=== PATIENT | male | born 1955 | race Caucasian/White ===

== ENCOUNTER 2018-05-04 12:01 | Inpatient (IN) | payer MEDICAID, OTHER ==
[~2018-05-04] VITALS: Ht 170.2 cm; Wt 70.2 kg
[~2018-05-04 12:01] MED LIST: AMLO10TA2 PO; DARU800T2 PO; DULO30CA2 PO; GABA800T2 PO; INSU100V8 SQ; LAMO25TA13 PO; LISI-167 PO; MIRT30TA6 PO; PANT40TA5 PO; RITO100C PO; [UNRECOGNIZED DRUG - CODE] PO; [UNRECOGNIZED DRUG - CODE] PO
[2018-05-04] MEDS ORDERED: SODIUM CHLORIDE 0.9% 1,000 ML IV ONE (12:15)
[2018-05-04] MEDS: SODIUM CHLORIDE 0.9% 1,000ML IVBOLUS ONE ×2 (12:29→12:30)
[2018-05-04] MEDS ORDERED: SODIUM CHLORIDE FLUSH 10ML SYR IVF ONE (12:30)
[2018-05-04 12:42] LABS: BASOPHILS # (AUTO) 0.04 x10^3/uL (0-0.1); BASOPHILS % (AUTO) 1 % (0-1); EOSINOPHILS # (AUTO) 0.21 x10^3/uL (0-0.4); EOSINOPHILS % (AUTO) 3 % (1-7); LYMPHOCYTES % (AUTO) 37 % (22-44); MD NO; MEAN CORPUSCULAR HEMOGLOBIN 29.7 pg (27.5-34.5); MEAN CORPUSCULAR HGB CONC 33.3 g/dL (33.2-36.2); MEAN CORPUSCULAR VOLUME 89.4 fL (81-97); MEAN PLATELET VOLUME 8.6 fL (7.4-10.4); MONOCYTES # (AUTO) 0.82 x10^3/uL (0.2-0.8); MONOCYTES % (AUTO) 12 % (2-9); NEUTROPHILS # (AUTO) 3.38 x10^3/uL (1.8-6.8); NEUTROPHILS % (AUTO) 48 % (42-75); PLATELET COUNT 173 x10^3/uL (130-400); RED BLOOD COUNT 4.75 x10^6/uL (4.38-5.82); RED CELL DISTRIBUTION WIDTH 13.6 % (9.4-14.8)
[2018-05-04 12:55] LABS: ALANINE AMINOTRANSFERASE 31 U/L (12-78); ALBUMIN 3.3 g/dL (3.4-5.0); ANION GAP 7 mmol/L (5-15); CALCIUM 8.3 mg/dL (8.5-10.1); CHLORIDE 106 mmol/L (98-107)
[2018-05-04 12:59] LABS: BILIRUBIN,TOTAL 0.8 mg/dL (0.2-1.0); CREATININE 2.19 mg/dL (0.7-1.3); TOTAL PROTEIN 7.1 g/dL (6.4-8.2); TROPONIN I 0.017 ng/mL (0.000-0.045)
[2018-05-04] MEDS ORDERED: CEFTRIAXONE PMX 1GM/50ML 50 ML IVPB ONE (13:00)
[2018-05-04] MEDS ORDERED: AZITHROMYCIN 500 MG in SODIUM CHLORIDE 0.9% 250 ML IVPB ONE (13:00)
[2018-05-04 13:05] LABS: D-DIMER < 0.19 ug/mlFEU (0.00-0.52); INTERNATIONAL NORMALIZED RATIO 1.07 (0.93-1.1); PARTIAL THROMBOPLASTIN TIME 28 Seconds (25-31); PROTHROMBIN TIME 11.1 Seconds (9.6-11.5)
[2018-05-04] MEDS ORDERED: DEXTROSE 50%, 50ML SYRINGE ONE (13:10)
[2018-05-04 13:13] LABS: ALKALINE PHOSPHATASE 63 U/L (45-117)
[2018-05-04] MEDS ORDERED: CEFTRIAXONE PMX 1GM/50ML 50 ML ONE (13:27)
[2018-05-04] MEDS ORDERED: DEXTROSE 50%, 50ML SYRINGE IVPush ONE (13:30)
[2018-05-04] MEDS ORDERED: INSU100V13 SQ (13:36)
[2018-05-04] MEDS ORDERED: ASPI-515 PO (13:36)
[2018-05-04] MEDS ORDERED: HYDROcodone/APAP 5/325 TABLET PO PRN (14:30)
[2018-05-04] MEDS ORDERED: ONDANSETRON ODT 4 MG PO PRN (14:30)
[2018-05-04] MEDS ORDERED: POLYETHYLENE GLYCOL 17 GM PACKET PO PRN (14:30)
[2018-05-04] MEDS ORDERED: ONDANSETRON 2MG/ML, 2ML IVPush PRN (14:30)
[2018-05-04] MEDS ORDERED: LABETALOL 5MG/ML, 20ML IVPush PRN (14:30)
[2018-05-04 14:57] LABS: FREE T4 (FREE THYROXINE) 1.23 ng/dL (0.76-1.46)
[2018-05-04] MEDS ORDERED: ALBUTEROL SULFATE 2.5 MG/3 ML NPPB PRN (15:00)
[2018-05-04] MEDS ORDERED: POTASSIUM CHLORIDE 20 MEQ TAB.ER.PRT PO ONE ×3 (15:00→20:00)
[2018-05-04] MEDS ORDERED: PHARMACY MAY ADJ FOR RENAL FX MC PRN (15:00)
[2018-05-04] MEDS ORDERED: POTASSIUM CHLORIDE 20 MEQ TAB.ER.PRT ONE (15:01)
[2018-05-04 15:24] LABS: HEMOGLOBIN A1C 8.1 % (4.2-6.3)
[2018-05-04] MEDS: CEFTRIAXONE PMX 1GM/50ML 50 ML IV SCH (15:47)
[2018-05-04 15:57] VITALS: BP 125/79
[2018-05-04 16:53] LABS: AMPHETAMINE SCREEN, URINE Positive (Negative); BARBITURATE SCREEN, URINE Negative (Negative); BENZODIAZEPINE SCREEN, URINE Negative (Negative); CANNABINOID SCREEN, URINE Negative (Negative); COCAINE SCREEN, URINE Negative (Negative); METHADONE SCREEN, URINE Negative (Negative); OPIATE SCREEN, URINE Negative (Negative); SODIUM,URINE RANDOM 36 mmol/L
[2018-05-04] MEDS: GABAPENTIN 400 MG CAPSULE PO SCH (17:18)
[2018-05-04] MEDS: HEPARIN 5,000 UNITS/ML, 1ML SQ SCH (17:18)
[2018-05-04] MEDS: DOXYCYCLINE 100MG TABLET PO SCH (17:20)
[2018-05-04 18:42] VITALS: BP 137/83
[2018-05-04 18:53] VITALS: BP 131/80
[2018-05-04] MEDS: INSULIN LISPRO 100 UNITS/ML, PEN SQ-INSULIN SCH (21:07)
[2018-05-05 00:51] VITALS: BP 114/79
[2018-05-05] MEDS: HEPARIN 5,000 UNITS/ML, 1ML SQ SCH ×4 (01:43→23:58)
[2018-05-05] MEDS: GABAPENTIN 400 MG CAPSULE PO SCH ×4 (01:44→21:24)
[2018-05-05] MEDS: DOXYCYCLINE 100MG TABLET PO SCH ×3 (05:19→21:24)
[2018-05-05 05:44] LABS: ALBUMIN 3.3 g/dL (3.4-5.0); ANION GAP 6 mmol/L (5-15); CALCIUM 8.5 mg/dL (8.5-10.1); CHLORIDE 107 mmol/L (98-107)
[2018-05-05 05:51] LABS: BASOPHILS # (AUTO) 0.02 x10^3/uL (0-0.1); BASOPHILS % (AUTO) 0 % (0-1); EOSINOPHILS # (AUTO) 0.24 x10^3/uL (0-0.4); EOSINOPHILS % (AUTO) 5 % (1-7); LYMPHOCYTES # (AUTO) 1.68 x10^3/uL (1-3.4); LYMPHOCYTES % (AUTO) 33 % (22-44); MD NO; MEAN CORPUSCULAR HEMOGLOBIN 30.1 pg (27.5-34.5); MEAN CORPUSCULAR HGB CONC 32.7 g/dL (33.2-36.2); MEAN CORPUSCULAR VOLUME 92.1 fL (81-97); MEAN PLATELET VOLUME 9.4 fL (7.4-10.4); MONOCYTES # (AUTO) 0.38 x10^3/uL (0.2-0.8); MONOCYTES % (AUTO) 7 % (2-9); NEUTROPHILS # (AUTO) 2.74 x10^3/uL (1.8-6.8); NEUTROPHILS % (AUTO) 54 % (42-75); PLATELET COUNT 131 x10^3/uL (130-400); RED BLOOD COUNT 4.61 x10^6/uL (4.38-5.82); RED CELL DISTRIBUTION WIDTH 13.1 % (9.4-14.8)
[2018-05-05 05:57] LABS: ALANINE AMINOTRANSFERASE 33 U/L (12-78); ALKALINE PHOSPHATASE 63 U/L (45-117); BILIRUBIN,TOTAL 0.8 mg/dL (0.2-1.0); CREATININE 1.83 mg/dL (0.7-1.3); THYROID STIMULATING HORMONE 0.682 mIU/L (0.358-3.740); TOTAL PROTEIN 7.1 g/dL (6.4-8.2)
[2018-05-05] MEDS: INSULIN LISPRO 100 UNITS/ML, PEN SQ-INSULIN SCH ×4 (08:27→21:25)
[2018-05-05] MEDS: LAMOTRIGINE 25 MG TABLET PO SCH (08:35)
[2018-05-05] MEDS: ASPIRIN 81 MG TABLET EC PO SCH (08:36)
[2018-05-05] MEDS: ABACAVIR 300 MG TABLET PO SCH (08:36)
[2018-05-05] MEDS: RITONAVIR 100 MG TABLET PO SCH (08:36)
[2018-05-05] MEDS: PANTOPROZOLE 40MG TABLET PO SCH (08:36)
[2018-05-05] MEDS: DARUNAVIR 800 MG TABLET PO SCH (08:36)
[2018-05-05] MEDS: SENNA/DOCUSATE TABLET PO SCH (08:37)
[2018-05-05] MEDS: INSULIN GLARGINE 100 UNITS/ML, PEN SQ-INSULIN SCH ×2 (08:37→21:24)
[2018-05-05] MEDS ORDERED: TEMPLATE NON-FORMULARY MED. (Amlodipine Besylate (Amlodipine Besylate**) 5 MG) PO SCH (09:00)
[2018-05-05 09:34] VITALS: BP 124/78
[2018-05-05 13:30] VITALS: BP 105/69
[2018-05-05] MEDS: CEFTRIAXONE PMX 1GM/50ML 50 ML IV SCH (13:37)
[2018-05-05 19:57] VITALS: BP 115/73
[2018-05-06 03:40] VITALS: BP 117/75
[2018-05-06 05:32] LABS: BASOPHILS # (AUTO) 0.02 x10^3/uL (0-0.1); BASOPHILS % (AUTO) 0 % (0-1); EOSINOPHILS % (AUTO) 7 % (1-7); LYMPHOCYTES # (AUTO) 2.01 x10^3/uL (1-3.4); LYMPHOCYTES % (AUTO) 45 % (22-44); MD NO; MEAN CORPUSCULAR HEMOGLOBIN 30.2 pg (27.5-34.5); MEAN CORPUSCULAR HGB CONC 33.2 g/dL (33.2-36.2); MEAN CORPUSCULAR VOLUME 90.9 fL (81-97); MEAN PLATELET VOLUME 8.8 fL (7.4-10.4); MONOCYTES # (AUTO) 0.32 x10^3/uL (0.2-0.8); MONOCYTES % (AUTO) 7 % (2-9); NEUTROPHILS # (AUTO) 1.84 x10^3/uL (1.8-6.8); NEUTROPHILS % (AUTO) 41 % (42-75); PLATELET COUNT 139 x10^3/uL (130-400); RED BLOOD COUNT 4.33 x10^6/uL (4.38-5.82); RED CELL DISTRIBUTION WIDTH 12.8 % (9.4-14.8)
[2018-05-06 05:44] LABS: CHLORIDE 107 mmol/L (98-107)
[2018-05-06 05:55] LABS: ALANINE AMINOTRANSFERASE 31 U/L (12-78); ALKALINE PHOSPHATASE 60 U/L (45-117); ANION GAP 6 mmol/L (5-15); BILIRUBIN,TOTAL 0.5 mg/dL (0.2-1.0); CALCIUM 8.7 mg/dL (8.5-10.1); CREATININE 1.32 mg/dL (0.7-1.3); TOTAL PROTEIN 6.5 g/dL (6.4-8.2)
[2018-05-06 06:40] VITALS: BP 148/90
[2018-05-06] MEDS: INSULIN GLARGINE 100 UNITS/ML, PEN SQ-INSULIN SCH ×2 (10:07→22:47)
[2018-05-06] MEDS: INSULIN LISPRO 100 UNITS/ML, PEN SQ-INSULIN SCH ×4 (10:08→22:46)
[2018-05-06] MEDS: HEPARIN 5,000 UNITS/ML, 1ML SQ SCH ×2 (10:10→17:10)
[2018-05-06] MEDS: ASPIRIN 81 MG TABLET EC PO SCH (10:13)
[2018-05-06] MEDS: GABAPENTIN 400 MG CAPSULE PO SCH ×3 (10:14→22:45)
[2018-05-06] MEDS: DOXYCYCLINE 100MG TABLET PO SCH ×2 (10:14→22:47)
[2018-05-06] MEDS: LAMOTRIGINE 25 MG TABLET PO SCH (10:14)
[2018-05-06] MEDS: DARUNAVIR 800 MG TABLET PO SCH (10:15)
[2018-05-06] MEDS: PANTOPROZOLE 40MG TABLET PO SCH (10:15)
[2018-05-06] MEDS: SENNA/DOCUSATE TABLET PO SCH (10:15)
[2018-05-06] MEDS: RITONAVIR 100 MG TABLET PO SCH (10:15)
[2018-05-06] MEDS: ABACAVIR 300 MG TABLET PO SCH (10:15)
[2018-05-06 12:40] VITALS: BP 98/59
[2018-05-06] MEDS ORDERED: LACTATED RINGERS 1,000 ML IV SCH (13:00)
[2018-05-06] MEDS: CEFTRIAXONE PMX 1GM/50ML 50 ML IV SCH (13:09)
[2018-05-06 21:55] VITALS: BP 122/79
[2018-05-07] MEDS: HEPARIN 5,000 UNITS/ML, 1ML SQ SCH ×3 (01:27→17:57)
[2018-05-07 03:41] VITALS: BP 128/62
[2018-05-07 05:33] LABS: BASOPHILS # (AUTO) 0.02 x10^3/uL (0-0.1); BASOPHILS % (AUTO) 1 % (0-1); EOSINOPHILS # (AUTO) 0.23 x10^3/uL (0-0.4); EOSINOPHILS % (AUTO) 7 % (1-7); LYMPHOCYTES % (AUTO) 45 % (22-44); MD NO; MEAN CORPUSCULAR HEMOGLOBIN 30.5 pg (27.5-34.5); MEAN CORPUSCULAR VOLUME 89.6 fL (81-97); MEAN PLATELET VOLUME 8.8 fL (7.4-10.4); MONOCYTES # (AUTO) 0.27 x10^3/uL (0.2-0.8); MONOCYTES % (AUTO) 8 % (2-9); NEUTROPHILS # (AUTO) 1.42 x10^3/uL (1.8-6.8); NEUTROPHILS % (AUTO) 40 % (42-75); PLATELET COUNT 128 x10^3/uL (130-400); RED BLOOD COUNT 4.23 x10^6/uL (4.38-5.82); RED CELL DISTRIBUTION WIDTH 12.8 % (9.4-14.8)
[2018-05-07 05:39] LABS: ANION GAP 7 mmol/L (5-15); CALCIUM 8.8 mg/dL (8.5-10.1); CHLORIDE 108 mmol/L (98-107)
[2018-05-07 05:40] LABS: CREATININE 1.27 mg/dL (0.7-1.3)
[2018-05-07] MEDS: INSULIN LISPRO 100 UNITS/ML, PEN SQ-INSULIN SCH ×4 (07:00→21:32)
[2018-05-07 08:01] VITALS: BP 130/68
[2018-05-07] MEDS: ASPIRIN 81 MG TABLET EC PO SCH (08:20)
[2018-05-07] MEDS: PANTOPROZOLE 40MG TABLET PO SCH (08:20)
[2018-05-07] MEDS: DOXYCYCLINE 100MG TABLET PO SCH ×2 (08:20→21:32)
[2018-05-07] MEDS: SENNA/DOCUSATE TABLET PO SCH (08:21)
[2018-05-07] MEDS: GABAPENTIN 400 MG CAPSULE PO SCH ×3 (08:21→21:32)
[2018-05-07] MEDS: RITONAVIR 100 MG TABLET PO SCH (08:21)
[2018-05-07] MEDS: LAMOTRIGINE 25 MG TABLET PO SCH (08:21)
[2018-05-07] MEDS: DARUNAVIR 800 MG TABLET PO SCH (08:22)
[2018-05-07] MEDS: ABACAVIR 300 MG TABLET PO SCH (08:22)
[2018-05-07 13:00] VITALS: BP 111/73
[2018-05-07] MEDS: CEFTRIAXONE PMX 1GM/50ML 50 ML IV SCH (13:48)
[2018-05-07 18:46] VITALS: BP 145/87
[2018-05-07] MEDS: INSULIN GLARGINE 100 UNITS/ML, PEN SQ-INSULIN SCH (21:32)
[2018-05-08] MEDS: HEPARIN 5,000 UNITS/ML, 1ML SQ SCH ×2 (00:36→08:30)
[2018-05-08 01:18] VITALS: BP 118/76
[2018-05-08 05:43] LABS: BASOPHILS # (AUTO) 0.02 x10^3/uL (0-0.1); BASOPHILS % (AUTO) 1 % (0-1); EOSINOPHILS # (AUTO) 0.18 x10^3/uL (0-0.4); EOSINOPHILS % (AUTO) 5 % (1-7); LYMPHOCYTES # (AUTO) 1.75 x10^3/uL (1-3.4); LYMPHOCYTES % (AUTO) 47 % (22-44); MD NO; MEAN CORPUSCULAR HEMOGLOBIN 29.8 pg (27.5-34.5); MEAN CORPUSCULAR HGB CONC 32.9 g/dL (33.2-36.2); MEAN CORPUSCULAR VOLUME 90.7 fL (81-97); MEAN PLATELET VOLUME 8.9 fL (7.4-10.4); MONOCYTES # (AUTO) 0.39 x10^3/uL (0.2-0.8); MONOCYTES % (AUTO) 11 % (2-9); NEUTROPHILS # (AUTO) 1.42 x10^3/uL (1.8-6.8); NEUTROPHILS % (AUTO) 38 % (42-75); PLATELET COUNT 136 x10^3/uL (130-400); RED BLOOD COUNT 4.51 x10^6/uL (4.38-5.82); RED CELL DISTRIBUTION WIDTH 12.8 % (9.4-14.8)
[2018-05-08 05:52] LABS: CHLORIDE 109 mmol/L (98-107)
[2018-05-08 05:57] LABS: ANION GAP 5 mmol/L (5-15); CALCIUM 8.9 mg/dL (8.5-10.1); CREATININE 1.34 mg/dL (0.7-1.3)
[2018-05-08] MEDS: INSULIN LISPRO 100 UNITS/ML, PEN SQ-INSULIN SCH ×2 (07:00→11:23)
[2018-05-08 07:24] VITALS: BP 115/62
[2018-05-08] MEDS ORDERED: CEFD300C37 PO (07:34)
[2018-05-08] MEDS ORDERED: DOXY100T PO (07:34)
[2018-05-08] MEDS ORDERED: INSU100V13 SQ (07:34)
[2018-05-08] MEDS ORDERED: CEFTRIAXONE PMX 1GM/50ML 50 ML IV SCH (08:00)
[2018-05-08] MEDS: SENNA/DOCUSATE TABLET PO SCH (09:00)
[2018-05-08] MEDS: RITONAVIR 100 MG TABLET PO SCH (09:31)
[2018-05-08] MEDS: DARUNAVIR 800 MG TABLET PO SCH (09:31)
[2018-05-08] MEDS: GABAPENTIN 400 MG CAPSULE PO SCH (09:31)
[2018-05-08] MEDS: ASPIRIN 81 MG TABLET EC PO SCH (09:32)
[2018-05-08] MEDS: ABACAVIR 300 MG TABLET PO SCH (09:32)
[2018-05-08] MEDS: DOXYCYCLINE 100MG TABLET PO SCH (09:32)
[2018-05-08] MEDS: PANTOPROZOLE 40MG TABLET PO SCH (09:32)
[2018-05-08] MEDS: LAMOTRIGINE 25 MG TABLET PO SCH (09:32)
[2018-05-08 12:38] VITALS: BP 118/70
== END 2018-05-08 13:55 | disposition home or self-care (01) | DRG 682 ==
LOC: ED 13:57 → EDIP 14:26 → 5SO 15:46 → 4EST 05-05 16:10
PROVIDERS: ADMIT Hospitalist; ATTEND Hospitalist
DX: N17.0 Acute kidney failure with tubular necrosis (principal); J15.9 Unspecified bacterial pneumonia; J96.01 Acute respiratory failure with hypoxia; I13.0 Hypertensive heart and chronic kidney disease with heart failure and stage 1 through stage 4 chronic kidney disease, or unspecified chronic kidney disease; J44.0 Chronic obstructive pulmonary disease with (acute) lower respiratory infection; J44.1 Chronic obstructive pulmonary disease with (acute) exacerbation; E11.22 Type 2 diabetes mellitus with diabetic chronic kidney disease; Z21 Asymptomatic human immunodeficiency virus [HIV] infection status; E11.42 Type 2 diabetes mellitus with diabetic polyneuropathy; E11.649 Type 2 diabetes mellitus with hypoglycemia without coma; E87.6 Hypokalemia; E78.5 Hyperlipidemia, unspecified; F15.90 Other stimulant use, unspecified, uncomplicated; F17.210 Nicotine dependence, cigarettes, uncomplicated; F31.9 Bipolar disorder, unspecified; F19.10 Other psychoactive substance abuse, uncomplicated; I25.10 Atherosclerotic heart disease of native coronary artery without angina pectoris; I50.9 Heart failure, unspecified; N18.3 Chronic kidney disease, stage 3 (moderate); I25.2 Old myocardial infarction; Z79.4 Long term (current) use of insulin; Z71.51 Drug abuse counseling and surveillance of drug abuser
CPT/HCPCS: 36415; 71045; 71250; 76770; 80048; 80053; 80307; 82040; 82570; 82962; 83036; 83605; 83615; 83735; 83880; 84100; 84145; 84300; 84439; 84443; 84484; 85025; 85379; 85610; 85730; 87040; 93005; 96374; 96375; J0456; J0696; J1644; J1815; J7030; J7050; J7120

== ENCOUNTER 2018-07-28 18:13 | Emergency (ER) | payer OTHER ==
[~2018-07-28] VITALS: Ht 172.7 cm; Wt 72.7 kg
[~2018-07-28 18:13] MED LIST changes: -AMLO10TA2 PO; +AMLO10TA6 PO; +ASPI-515 PO; +CEFD300C37 PO; +DOXY100T PO; +INSU100V13 SQ
[2018-07-28 19:02] LABS: ALBUMIN 3.8 g/dL (3.4-5.0); ANION GAP 9 mmol/L (5-15); CALCIUM 8.5 mg/dL (8.5-10.1); CHLORIDE 104 mmol/L (98-107)
[2018-07-28 19:06] LABS: ALANINE AMINOTRANSFERASE 24 U/L (12-78); ALKALINE PHOSPHATASE 80 U/L (45-117); BILIRUBIN,TOTAL 0.5 mg/dL (0.2-1.0); CREATINE KINASE, TOTAL 210 U/L (39-308); CREATININE 1.35 mg/dL (0.7-1.3); TOTAL PROTEIN 8.4 g/dL (6.4-8.2)
[2018-07-28 19:08] LABS: BASOPHILS # (AUTO) 0.02 x10^3/uL (0-0.1); BASOPHILS % (AUTO) 1 % (0-1); EOSINOPHILS # (AUTO) 0.16 x10^3/uL (0-0.4); EOSINOPHILS % (AUTO) 4 % (1-7); LYMPHOCYTES # (AUTO) 1.64 x10^3/uL (1-3.4); LYMPHOCYTES % (AUTO) 42 % (22-44); MD NO; MEAN CORPUSCULAR HEMOGLOBIN 30.4 pg (27.5-34.5); MEAN CORPUSCULAR HGB CONC 33.5 g/dL (33.2-36.2); MEAN CORPUSCULAR VOLUME 90.6 fL (81-97); MEAN PLATELET VOLUME 9.1 fL (7.4-10.4); MONOCYTES # (AUTO) 0.32 x10^3/uL (0.2-0.8); MONOCYTES % (AUTO) 8 % (2-9); NEUTROPHILS # (AUTO) 1.81 x10^3/uL (1.8-6.8); NEUTROPHILS % (AUTO) 46 % (42-75); PLATELET COUNT 183 x10^3/uL (130-400); RED BLOOD COUNT 4.62 x10^6/uL (4.38-5.82); RED CELL DISTRIBUTION WIDTH 12.5 % (9.4-14.8)
[2018-07-28] MEDS ORDERED: SODIUM CHLORIDE FLUSH 10ML SYR IVF ONE (19:30)
[2018-07-28] MEDS ORDERED: SODIUM CHLORIDE 0.9% 1,000ML IVBOLUS ONE (19:30)
[2018-07-28 19:48] LABS: MICROSCOPIC AUTO
[2018-07-28 19:49] LABS: CULTURE INDICATED? NO
[2018-07-28 21:03] VITALS: BP 117/74
== END 2018-07-28 21:05 | disposition home or self-care (01) ==
LOC: ED 19:59
DX: M79.1 Myalgia (principal); E11.22 Type 2 diabetes mellitus with diabetic chronic kidney disease; I12.9 Hypertensive chronic kidney disease with stage 1 through stage 4 chronic kidney disease, or unspecified chronic kidney disease; N18.9 Chronic kidney disease, unspecified; I25.2 Old myocardial infarction; I25.10 Atherosclerotic heart disease of native coronary artery without angina pectoris; E11.42 Type 2 diabetes mellitus with diabetic polyneuropathy
CPT/HCPCS: 36415; 80053; 81001; 82550; 85025; 96360; 99284; J7030

== ENCOUNTER 2018-11-12 11:55 | Inpatient (IN) | payer OTHER ==
[~2018-11-12] VITALS: Ht 152.4 cm; Wt 46.3 kg
[~2018-11-12 11:55] MED LIST changes: -AMLO10TA6 PO; +AMLO10TA8 PO; -GABA800T2 PO; +GABA800T5 PO
--- NOTE | 2018-11-12 12:14 | NUR ---
pt to room from lobby
--- NOTE | 2018-11-12 12:21 | NUR ---
63 Y/O MALE PRESENTS TO ED WITH C/O COUGH. "I'VE HAD A COUGH FOR ABOUT A WEEK. MY CHEST STARTED HURTING WITH MY COUGHING LAST NIGHT." PT PLACED ON CONT PULSE OX,NIBP, MULTIFOCAL BUTTON GENERATOR. NO C/O N/V/D, TRAUMA, SYNCOPE
[2018-11-12] MEDS ORDERED: CEFTRIAXONE PMX 1GM/50ML 50 ML IVPB ONE (12:30)
[2018-11-12] MEDS ORDERED: DOXYCYCLINE 100MG TABLET PO ONE (12:30)
[2018-11-12] MEDS ORDERED: ALBUTEROL/IPRATROPIUM 2.5MG/0.5MG, 3 ML NPPB ONE (12:30)
[2018-11-12] MEDS ORDERED: SODIUM CHLORIDE 0.9% 1,000ML IVBOLUS ONE (12:30)
[2018-11-12] MEDS ORDERED: ASPIRIN 81 MG TABLET CHEW PO ONE (12:30)
[2018-11-12 12:33] LABS: MEAN CORPUSCULAR HEMOGLOBIN 30.1 pg (27.5-34.5); MEAN CORPUSCULAR HGB CONC 34.1 g/dL (33.2-36.2); MEAN CORPUSCULAR VOLUME 88.2 fL (81-97); MEAN PLATELET VOLUME 8.8 fL (7.4-10.4); PLATELET COUNT 169 x10^3/uL (130-400); RED CELL DISTRIBUTION WIDTH 14.4 % (9.4-14.8)
[2018-11-12] MEDS ORDERED: ALBUTEROL/IPRATROPIUM 2.5MG/0.5MG, 3 ML ONE (12:35)
[2018-11-12] MEDS ORDERED: TRIUMEQ (12:40)
[2018-11-12] MEDS ORDERED: OMEP-110 PO (12:40)
[2018-11-12] MEDS ORDERED: PRAV40TA2 PO (12:40)
[2018-11-12 12:41] LABS: ALBUMIN 3.5 g/dL (3.4-5.0); ANION GAP 6 mmol/L (5-15); CALCIUM 9.3 mg/dL (8.5-10.1); CHLORIDE 98 mmol/L (98-107); CREATININE 1.82 mg/dL (0.7-1.3)
[2018-11-12 12:45] LABS: TROPONIN I < 0.015 ng/mL (0.000-0.045)
[2018-11-12] MEDS ORDERED: DOXYCYCLINE 100 MG in DEXTROSE 5% 250 ML IV ONE (13:00)
[2018-11-12 13:14] LABS: BASOPHILS # (AUTO) 0.03 x10^3/uL (0-0.1); BASOPHILS % (AUTO) 1 % (0-1); EOSINOPHILS # (AUTO) 0.63 x10^3/uL (0-0.4); EOSINOPHILS % (AUTO) 11 % (1-7); LYMPHOCYTES # (AUTO) 2.16 x10^3/uL (1-3.4); LYMPHOCYTES % (AUTO) 39 % (22-44); MD SCAN; MONOCYTES # (AUTO) 0.34 x10^3/uL (0.2-0.8); MONOCYTES % (AUTO) 6 % (2-9); NEUTROPHILS # (AUTO) 2.35 x10^3/uL (1.8-6.8); NEUTROPHILS % (AUTO) 43 % (42-75)
[2018-11-12] MEDS ORDERED: ONDANSETRON 2MG/ML, 2ML IVPush PRN (13:30)
[2018-11-12] MEDS ORDERED: CEFTRIAXONE PMX 1GM/50ML 50 ML IV SCH (13:30)
[2018-11-12] MEDS ORDERED: POLYETHYLENE GLYCOL 17 GM PACKET PO PRN (13:30)
[2018-11-12] MEDS ORDERED: ONDANSETRON ODT 4 MG PO PRN (13:30)
[2018-11-12] MEDS ORDERED: LABETALOL 5MG/ML, 20ML IVPush PRN (13:30)
[2018-11-12] MEDS ORDERED: ASPIRIN 81 MG TABLET CHEW ONE (13:31)
--- NOTE | 2018-11-12 13:35 | NUR ---
PIV ESTABLISHED. PT TOLERATED WITH NO COMPLICATIONS. SIGNIFICANT OTHER BEDSIDE. NO NEEDS REQUESTED AT THIS TIME. NO ACUTE DISTRESS NOTED.
--- NOTE | 2018-11-12 13:44 | NUR ---
Break RN: Pt resting comfortably, VSS, aware of POC for admit.
[2018-11-12 14:03] LABS: FREE T4 (FREE THYROXINE) 1.05 ng/dL (0.76-1.46)
--- NOTE | 2018-11-12 14:07 | NUR ---
Report called to floor, pt updated, ready for transport.
--- NOTE | 2018-11-12 14:19 | NUR ---
CALLED RECEIVING RN, RONNIE. LET HIM KNOW THAT THE ROCEPHIN NEEDS TO BE ADMINISTERED.PT STILL HAS DOXY RUNNING.
[2018-11-12] MEDS ORDERED: ALBUTEROL SULFATE 2.5 MG/3 ML NPPB PRN (14:30)
--- NOTE | 2018-11-12 14:34 | NUR ---
PT TRANSPORTED TO FLOOR. PT LEFT WITH ALL PERSONAL BELONGINGS.
[2018-11-12 15:36] VITALS: BP 100/64
[2018-11-12] MEDS ORDERED: SODIUM CHLORIDE 0.9% 1,000 ML IV SCH (18:00)
[2018-11-12] MEDS: ENOXAPARIN 40 MG/0.4 ML SQ SCH (18:05)
[2018-11-12] MEDS: SODIUM CHLORIDE 0.9% 1,000 ML IV SCH (18:35)
[2018-11-12] MEDS: CEFTRIAXONE PMX 1GM/50ML 50 ML IV SCH (18:35)
[2018-11-12 19:22] VITALS: BP 93/60
[2018-11-12 19:30] LABS: CREATININE,URINE RANDOM 70.9 mg/dL
[2018-11-12] MEDS ORDERED: INSULIN LISPRO 100 UNITS/ML, PEN SQ-INSULIN ONE (20:30)
[2018-11-12] MEDS: INSULIN LISPRO 100 UNITS/ML, PEN SQ-INSULIN SCH (21:18)
[2018-11-12] MEDS: PRAVASTATIN 40 MG TABLET PO SCH (21:27)
[2018-11-12] MEDS: GABAPENTIN 400 MG CAPSULE PO SCH (21:27)
[2018-11-12] MEDS: DOXYCYCLINE 100MG TABLET PO SCH (21:27)
[2018-11-13 01:20] VITALS: BP 109/70
[2018-11-13] MEDS: SODIUM CHLORIDE 0.9% 1,000 ML IV SCH ×3 (02:27→18:14)
[2018-11-13] MEDS ORDERED: INSULIN GLARGINE 100 UNITS/ML, PEN SQ-INSULIN ONE (03:00)
[2018-11-13 05:49] LABS: BASOPHILS # (AUTO) 0.01 x10^3/uL (0-0.1); BASOPHILS % (AUTO) 0 % (0-1); EOSINOPHILS # (AUTO) 0.05 x10^3/uL (0-0.4); EOSINOPHILS % (AUTO) 1 % (1-7); LYMPHOCYTES # (AUTO) 1.58 x10^3/uL (1-3.4); LYMPHOCYTES % (AUTO) 30 % (22-44); MD NO; MEAN CORPUSCULAR HEMOGLOBIN 29.7 pg (27.5-34.5); MEAN CORPUSCULAR HGB CONC 33.8 g/dL (33.2-36.2); MEAN CORPUSCULAR VOLUME 87.9 fL (81-97); MEAN PLATELET VOLUME 8.8 fL (7.4-10.4); MONOCYTES # (AUTO) 0.25 x10^3/uL (0.2-0.8); MONOCYTES % (AUTO) 5 % (2-9); NEUTROPHILS # (AUTO) 3.47 x10^3/uL (1.8-6.8); NEUTROPHILS % (AUTO) 65 % (42-75); PLATELET COUNT 154 x10^3/uL (130-400); RED BLOOD COUNT 4.06 x10^6/uL (4.38-5.82); RED CELL DISTRIBUTION WIDTH 14.3 % (9.4-14.8)
[2018-11-13 06:04] LABS: CHLORIDE 102 mmol/L (98-107)
[2018-11-13 06:20] LABS: ALANINE AMINOTRANSFERASE 25 U/L (12-78); ALBUMIN 3.2 g/dL (3.4-5.0); ALKALINE PHOSPHATASE 91 U/L (45-117); ANION GAP 10 mmol/L (5-15); BILIRUBIN,TOTAL 0.3 mg/dL (0.2-1.0); CALCIUM 8.6 mg/dL (8.5-10.1); THYROID STIMULATING HORMONE 0.365 mIU/L (0.358-3.740); TOTAL PROTEIN 7.5 g/dL (6.4-8.2)
[2018-11-13 07:25] VITALS: BP 130/71
[2018-11-13] MEDS: INSULIN LISPRO 100 UNITS/ML, PEN SQ-INSULIN SCH ×4 (08:25→20:27)
[2018-11-13] MEDS: DOXYCYCLINE 100MG TABLET PO SCH ×2 (08:26→20:27)
[2018-11-13] MEDS: LAMOTRIGINE 25 MG TABLET PO SCH (08:26)
[2018-11-13] MEDS: GABAPENTIN 400 MG CAPSULE PO SCH ×3 (08:27→20:26)
[2018-11-13] MEDS: SENNA/DOCUSATE TABLET PO SCH (08:27)
[2018-11-13] MEDS: OMEPRAZOLE 20 MG CAPSULE.DR PO SCH (08:27)
[2018-11-13] MEDS: AMLODIPINE 10 MG TAB PO SCH (08:27)
[2018-11-13] MEDS: ASPIRIN 81 MG TABLET EC PO SCH (08:27)
[2018-11-13] MEDS ORDERED: SODIUM CHLORIDE 0.9% 500 ML IV SCH (09:30)
[2018-11-13] MEDS: INSULIN GLARGINE 100 UNITS/ML, PEN SQ-INSULIN SCH (09:47)
[2018-11-13 13:30] VITALS: BP 106/64
[2018-11-13] MEDS: ENOXAPARIN 40 MG/0.4 ML SQ SCH (18:13)
[2018-11-13] MEDS: CEFTRIAXONE PMX 1GM/50ML 50 ML IV SCH (18:13)
[2018-11-13 20:15] VITALS: BP 126/79
[2018-11-13] MEDS: PRAVASTATIN 40 MG TABLET PO SCH (20:26)
[2018-11-14 02:08] VITALS: BP 123/80
[2018-11-14] MEDS: SODIUM CHLORIDE 0.9% 1,000 ML IV SCH ×3 (02:49→21:05)
[2018-11-14 06:27] LABS: ALANINE AMINOTRANSFERASE 19 U/L (12-78); ALBUMIN 2.8 g/dL (3.4-5.0); ANION GAP 7 mmol/L (5-15); CALCIUM 8.2 mg/dL (8.5-10.1); CHLORIDE 109 mmol/L (98-107); CREATININE 1.06 mg/dL (0.7-1.3)
[2018-11-14 06:29] LABS: ALKALINE PHOSPHATASE 75 U/L (45-117); BASOPHILS # (AUTO) 0.02 x10^3/uL (0-0.1); BASOPHILS % (AUTO) 0 % (0-1); BILIRUBIN,TOTAL 0.4 mg/dL (0.2-1.0); EOSINOPHILS # (AUTO) 0.05 x10^3/uL (0-0.4); EOSINOPHILS % (AUTO) 1 % (1-7); LYMPHOCYTES # (AUTO) 2.03 x10^3/uL (1-3.4); LYMPHOCYTES % (AUTO) 40 % (22-44); MD NO; MEAN CORPUSCULAR HEMOGLOBIN 29.4 pg (27.5-34.5); MEAN CORPUSCULAR HGB CONC 33.3 g/dL (33.2-36.2); MEAN CORPUSCULAR VOLUME 88.3 fL (81-97); MEAN PLATELET VOLUME 9.2 fL (7.4-10.4); MONOCYTES # (AUTO) 0.35 x10^3/uL (0.2-0.8); MONOCYTES % (AUTO) 7 % (2-9); NEUTROPHILS # (AUTO) 2.65 x10^3/uL (1.8-6.8); NEUTROPHILS % (AUTO) 52 % (42-75); PLATELET COUNT 139 x10^3/uL (130-400); RED BLOOD COUNT 3.79 x10^6/uL (4.38-5.82); RED CELL DISTRIBUTION WIDTH 14.1 % (9.4-14.8); TOTAL PROTEIN 6.7 g/dL (6.4-8.2)
[2018-11-14 06:44] VITALS: BP 118/75
[2018-11-14] MEDS: INSULIN LISPRO 100 UNITS/ML, PEN SQ-INSULIN SCH ×4 (07:00→21:41)
[2018-11-14] MEDS: ASPIRIN 81 MG TABLET EC PO SCH (08:16)
[2018-11-14] MEDS: GABAPENTIN 400 MG CAPSULE PO SCH ×3 (08:16→21:40)
[2018-11-14] MEDS: OMEPRAZOLE 20 MG CAPSULE.DR PO SCH (08:16)
[2018-11-14] MEDS: AMLODIPINE 10 MG TAB PO SCH (08:16)
[2018-11-14] MEDS: DOXYCYCLINE 100MG TABLET PO SCH ×2 (08:16→21:39)
[2018-11-14] MEDS: SENNA/DOCUSATE TABLET PO SCH (08:16)
[2018-11-14] MEDS: LAMOTRIGINE 25 MG TABLET PO SCH (08:18)
[2018-11-14] MEDS: INSULIN GLARGINE 100 UNITS/ML, PEN SQ-INSULIN SCH (08:18)
[2018-11-14 13:13] VITALS: BP 145/90
[2018-11-14] MEDS: ENOXAPARIN 40 MG/0.4 ML SQ SCH (17:42)
[2018-11-14] MEDS: CEFTRIAXONE PMX 1GM/50ML 50 ML IV SCH (17:42)
[2018-11-14] MEDS: PRAVASTATIN 40 MG TABLET PO SCH (21:39)
[2018-11-14 21:45] VITALS: BP 127/91
[2018-11-15 02:00] VITALS: BP 165/89
[2018-11-15] MEDS: SODIUM CHLORIDE 0.9% 1,000 ML IV SCH ×2 (04:51→13:25)
[2018-11-15 06:07] LABS: BASOPHILS # (AUTO) 0.02 x10^3/uL (0-0.1); BASOPHILS % (AUTO) 0 % (0-1); EOSINOPHILS # (AUTO) 0.06 x10^3/uL (0-0.4); EOSINOPHILS % (AUTO) 1 % (1-7); LYMPHOCYTES # (AUTO) 2.53 x10^3/uL (1-3.4); LYMPHOCYTES % (AUTO) 38 % (22-44); MD NO; MEAN CORPUSCULAR HGB CONC 33.8 g/dL (33.2-36.2); MEAN CORPUSCULAR VOLUME 88.7 fL (81-97); MEAN PLATELET VOLUME 9.3 fL (7.4-10.4); MONOCYTES # (AUTO) 0.51 x10^3/uL (0.2-0.8); MONOCYTES % (AUTO) 8 % (2-9); NEUTROPHILS # (AUTO) 3.61 x10^3/uL (1.8-6.8); NEUTROPHILS % (AUTO) 54 % (42-75); PLATELET COUNT 147 x10^3/uL (130-400); RED BLOOD COUNT 4.18 x10^6/uL (4.38-5.82); RED CELL DISTRIBUTION WIDTH 14.2 % (9.4-14.8)
[2018-11-15 06:15] LABS: CHLORIDE 103 mmol/L (98-107)
[2018-11-15 06:23] LABS: ALANINE AMINOTRANSFERASE 25 U/L (12-78); ALBUMIN 3.3 g/dL (3.4-5.0); ALKALINE PHOSPHATASE 93 U/L (45-117); ANION GAP 8 mmol/L (5-15); BILIRUBIN,TOTAL 0.3 mg/dL (0.2-1.0); CALCIUM 8.3 mg/dL (8.5-10.1); CREATININE 1.11 mg/dL (0.7-1.3); TOTAL PROTEIN 7.5 g/dL (6.4-8.2)
[2018-11-15 07:13] VITALS: BP 187/98
[2018-11-15] MEDS ORDERED: POTASSIUM CHLORIDE 20 MEQ TAB.ER.PRT PO ONE ×2 (08:00→11:30)
[2018-11-15] MEDS: INSULIN LISPRO 100 UNITS/ML, PEN SQ-INSULIN SCH ×2 (08:10→13:14)
[2018-11-15] MEDS: SENNA/DOCUSATE TABLET PO SCH (08:11)
[2018-11-15] MEDS: GABAPENTIN 400 MG CAPSULE PO SCH (08:11)
[2018-11-15] MEDS: ASPIRIN 81 MG TABLET EC PO SCH (08:11)
[2018-11-15] MEDS: OMEPRAZOLE 20 MG CAPSULE.DR PO SCH (08:11)
[2018-11-15] MEDS: DOXYCYCLINE 100MG TABLET PO SCH (08:12)
[2018-11-15] MEDS: AMLODIPINE 10 MG TAB PO SCH (08:12)
[2018-11-15] MEDS: LAMOTRIGINE 25 MG TABLET PO SCH (08:12)
[2018-11-15] MEDS ORDERED: INSULIN GLARGINE 100 UNITS/ML, PEN SQ-INSULIN SCH ×2 (09:00→21:00)
[2018-11-15 09:11] VITALS: BP 145/79
[2018-11-15] MEDS ORDERED: CEFD300C37 PO (12:28)
[2018-11-15] MEDS ORDERED: DOXY100T PO (12:28)
[2018-11-15] MEDS ORDERED: GUAIFENESIN 200 MG TABLET PO SCH (12:30)
[2018-11-15] MEDS ORDERED: GUAI200T3 PO (12:31)
[2018-11-15 13:05] VITALS: BP 145/91
[2018-11-15] MEDS ORDERED: INSU100I28 SQ (13:25)
[2018-11-15] MEDS ORDERED: INSU100V12 SQ-INSULIN (13:38)
[2018-11-15] MEDS ORDERED: INSULIN LISPRO 100 UNITS/ML, PEN SQ-INSULIN SCH (16:00)
[2018-11-15] MEDS ORDERED: METO25TA91 PO (16:57)
== END 2018-11-15 16:08 | disposition home or self-care (01) | DRG 871 ==
LOC: ED 12:52 → EDIP 12:53 → ED 13:11 → 4WST 14:34 → DCLOUNGE 11-15 15:43
PROVIDERS: ADMIT Hospitalist; ATTEND Hospitalist
PROC: 5A09357 Assistance with Respiratory Ventilation, Less than 24 Consecutive Hours, Continuous Positive Airway Pressure (ICD-10-PCS; principal; 2018-11-13)
DX: A41.9 Sepsis, unspecified organism (principal); J18.1 Lobar pneumonia, unspecified organism; N17.0 Acute kidney failure with tubular necrosis; I13.0 Hypertensive heart and chronic kidney disease with heart failure and stage 1 through stage 4 chronic kidney disease, or unspecified chronic kidney disease; J44.0 Chronic obstructive pulmonary disease with (acute) lower respiratory infection; D64.9 Anemia, unspecified; E11.22 Type 2 diabetes mellitus with diabetic chronic kidney disease; E11.42 Type 2 diabetes mellitus with diabetic polyneuropathy; E78.5 Hyperlipidemia, unspecified; E11.65 Type 2 diabetes mellitus with hyperglycemia; E86.0 Dehydration; I25.10 Atherosclerotic heart disease of native coronary artery without angina pectoris; F31.9 Bipolar disorder, unspecified; I25.2 Old myocardial infarction; I50.9 Heart failure, unspecified; N18.3 Chronic kidney disease, stage 3 (moderate); D89.9 Disorder involving the immune mechanism, unspecified; Z21 Asymptomatic human immunodeficiency virus [HIV] infection status; Z79.4 Long term (current) use of insulin; Z87.891 Personal history of nicotine dependence
CPT/HCPCS: 36415; 84145; 99285; J7620; 71045; 80048; 80053; 82040; 82436; 82570; 82962; 83605; 83615; 83735; 83880; 84100; 84133; 84300; 84439; 84443; 84484; 85025; 87040; 87205; 93005; 93306; 94640; 96361; 96374; G0378; J0696; J1650; J7060; J1815; J7030; J7040; J7512

== ENCOUNTER 2019-11-10 16:36 | Inpatient (IN) | payer OTHER ==
[~2019-11-10] VITALS: Ht 172.7 cm; Wt 86.1 kg
[~2019-11-10 16:36] MED LIST changes: +ASPI81TA45 PO; +ATOR-2 PO; +BICT1TAB PO; +CARV3.1212 PO; +GUAI200T37 PO; +INSU100I28 SQ; +INSU100V12 SQ-INSULIN; +LISI-424 PO; +METO25TA91 PO; -MIRT30TA6 PO; +MIRT30TA97 PO; +OMEP-110 PO; +PRAS10TA4 PO; +PRAV40TA2 PO; +TRIUMEQ; +[UNRECOGNIZED DRUG - OTHER]
--- NOTE | 2019-11-10 17:10 | NUR ---
Pt to ER for L sd CP, orthopnea, 17lb weight gain in 2 days, 3+ pitting edema BLE up to mid-thigh. Admitted Oct 31-Nov 06 for cardiac stent placement. Current pain level 6/10. Skin WPD. EKG done in triage, cardiac, NIBP & SPO2 monitor placed. Pt has SPO2 of 100% but feels relief of SOB on 2 liters oxygen via NC. Current med list obtained, await ER MD alrry.
--- NOTE | 2019-11-10 17:30 | NUR ---
Pt had episode of coughing that resulted in gagging & vomiting small amount of gastric contents. After vomiting, denies nausea.
[2019-11-10 17:37] LABS: ALANINE AMINOTRANSFERASE 207 U/L (12-78); ALBUMIN 2.9 g/dL (3.4-5.0); ANION GAP 6 mmol/L (5-15); CALCIUM 7.7 mg/dL (8.5-10.1); CHLORIDE 111 mmol/L (98-107); CREATININE 1.62 mg/dL (0.7-1.3)
[2019-11-10 17:42] LABS: ALKALINE PHOSPHATASE 229 U/L (45-117); BILIRUBIN,TOTAL 0.7 mg/dL (0.2-1.0); TOTAL PROTEIN 7.1 g/dL (6.4-8.2)
[2019-11-10 17:48] LABS: TROPONIN I 0.906 ng/mL (0.000-0.045)
[2019-11-10] MEDS ORDERED: BICT1TAB PO (17:51)
[2019-11-10] MEDS ORDERED: PANT40TA5 PO (17:51)
[2019-11-10] MEDS ORDERED: ALBU6.7H8 INH (17:51)
[2019-11-10] MEDS ORDERED: METO25TA35 PO (17:51)
[2019-11-10] MEDS ORDERED: GABA600T7 PO (17:51)
[2019-11-10] MEDS ORDERED: INSU100I18 SC (17:51)
[2019-11-10 17:55] LABS: BASOPHILS # (AUTO) 0.01 x10^3/uL (0-0.1); BASOPHILS % (AUTO) 0 % (0-1); EOSINOPHILS # (AUTO) 0.14 x10^3/uL (0-0.4); EOSINOPHILS % (AUTO) 2 % (1-7); LYMPHOCYTES # (AUTO) 1.34 x10^3/uL (1-3.4); LYMPHOCYTES % (AUTO) 23 % (22-44); MD NO; MEAN CORPUSCULAR HEMOGLOBIN 29.7 pg (27.5-34.5); MEAN CORPUSCULAR HGB CONC 32.4 g/dL (33.2-36.2); MEAN CORPUSCULAR VOLUME 91.6 fL (81-97); MEAN PLATELET VOLUME 9.1 fL (7.4-10.4); MONOCYTES # (AUTO) 0.65 x10^3/uL (0.2-0.8); MONOCYTES % (AUTO) 11 % (2-9); NEUTROPHILS # (AUTO) 3.61 x10^3/uL (1.8-6.8); NEUTROPHILS % (AUTO) 63 % (42-75); PLATELET COUNT 193 x10^3/uL (130-400); RED BLOOD COUNT 3.44 x10^6/uL (4.38-5.82); RED CELL DISTRIBUTION WIDTH 13.8 % (9.4-14.8)
[2019-11-10] MEDS ORDERED: MORPHINE SULFATE 4 MG/ML, 1ML IVPush ONE (18:00)
--- NOTE | 2019-11-10 18:00 | NUR ---
Pt to CT via [facility].
[2019-11-10] MEDS ORDERED: MORPHINE SULFATE 4 MG/ML, 1ML ONE (18:02)
[2019-11-10] MEDS ORDERED: OMNIPAQUE 350 MG/ML, 100ML BOTTLE ONE (18:25)
--- NOTE | 2019-11-10 18:39 | NUR ---
Back from CT medicated as per emar for 5/10 CP w/ morphine.
[2019-11-10] MEDS ORDERED: HEPARIN 5,000 UNITS/ML, 1ML IV ONE (19:00)
--- NOTE | 2019-11-10 19:00 | NUR ---
EUGENIO BS report to WOODROW Bhatt.
[2019-11-10] MEDS ORDERED: HEPARIN 5,000 UNITS/ML, 1ML ONE (19:07)
[2019-11-10] MEDS ORDERED: DOCUSATE 100 MG CAPSULE PO PRN (19:30)
[2019-11-10] MEDS ORDERED: PROMETHAZINE 25 MG/ML, 1ML IM PRN (19:30)
[2019-11-10] MEDS ORDERED: OXYcodone IR 5MG TABLET PO PRN (19:30)
[2019-11-10] MEDS ORDERED: BISACODYL 10 MG SUPP PR PRN (19:30)
[2019-11-10] MEDS ORDERED: ONDANSETRON 2MG/ML, 2ML IVPush PRN (19:30)
[2019-11-10] MEDS ORDERED: morphine SULFATE 10 MG/ML, 1ML IVPush PRN (19:30)
[2019-11-10] MEDS ORDERED: ACETAMINOPHEN 325 MG TABLET PO PRN (19:30)
[2019-11-10] MEDS ORDERED: ONDANSETRON ODT 4 MG PO PRN (19:30)
[2019-11-10] MEDS ORDERED: hydrALAzine 20 MG/ML, 1ML IVPush PRN (19:30)
[2019-11-10] MEDS ORDERED: POLYETHYLENE GLYCOL 17 GM PACKET PO PRN (19:30)
--- NOTE | 2019-11-10 19:38 | NUR ---
Danuta palmer [facility] denied pt Dayanara from [facility] denied pt
[2019-11-10] MEDS: HEPARIN 25,000 UNITS/500ML PMX 500 ML IV PRN (19:44)
[2019-11-10] MEDS ORDERED: CARVEDILOL 3.125 MG TABLET ONE (19:47)
[2019-11-10 19:52] LABS: FREE T4 (FREE THYROXINE) 1.01 ng/dL (0.76-1.46)
[2019-11-10] MEDS: CARVEDILOL 3.125 MG TABLET PO SCH (20:07)
--- NOTE | 2019-11-10 20:31 | NUR ---
PT PROVIDED HOSPITAL BED
[2019-11-10] MEDS: INSULIN LISPRO 100 UNITS/ML, PEN SQ-INSULIN SCH (21:00)
[2019-11-10] MEDS ORDERED: TEMPLATE NON-FORMULARY MED. (Gabapentin** 600 MG) PO SCH (21:00)
[2019-11-10] MEDS ORDERED: GABAPENTIN 300 MG CAPSULE ONE (21:30)
--- NOTE | 2019-11-10 21:44 | NUR ---
MED REQUEST SENT TO PHARM
[2019-11-10] MEDS: ATORVASTATIN 80 MG TABLET PO SCH (22:49)
[2019-11-10] MEDS: INSULIN GLARGINE 100 UNITS/ML, PEN SQ-INSULIN SCH (22:49)
--- NOTE | 2019-11-10 23:11 | NUR ---
pt medicated per emar. provided snacks
[2019-11-11] MEDS ORDERED: [UNRECOGNIZED DRUG - REMARK] MC SCH (00:30)
[2019-11-11 02:45] VITALS: BP 144/73
[2019-11-11 03:38] LABS: BASOPHILS % (AUTO) 0 % (0-1); EOSINOPHILS # (AUTO) 0.14 x10^3/uL (0-0.4); EOSINOPHILS % (AUTO) 3 % (1-7); LYMPHOCYTES # (AUTO) 1.52 x10^3/uL (1-3.4); LYMPHOCYTES % (AUTO) 29 % (22-44); MD NO; MEAN CORPUSCULAR HEMOGLOBIN 29.4 pg (27.5-34.5); MEAN CORPUSCULAR HGB CONC 32.2 g/dL (33.2-36.2); MEAN CORPUSCULAR VOLUME 91.5 fL (81-97); MEAN PLATELET VOLUME 9.1 fL (7.4-10.4); MONOCYTES # (AUTO) 0.56 x10^3/uL (0.2-0.8); MONOCYTES % (AUTO) 11 % (2-9); NEUTROPHILS # (AUTO) 3.11 x10^3/uL (1.8-6.8); NEUTROPHILS % (AUTO) 58 % (42-75); PLATELET COUNT 183 x10^3/uL (130-400); RED BLOOD COUNT 3.52 x10^6/uL (4.38-5.82); RED CELL DISTRIBUTION WIDTH 14.2 % (9.4-14.8)
[2019-11-11 03:53] LABS: ALANINE AMINOTRANSFERASE 186 U/L (12-78); ALBUMIN 2.9 g/dL (3.4-5.0); ANION GAP 6 mmol/L (5-15); CALCIUM 8.2 mg/dL (8.5-10.1); CHLORIDE 105 mmol/L (98-107)
[2019-11-11 03:56] LABS: ALKALINE PHOSPHATASE 226 U/L (45-117); BILIRUBIN,TOTAL 0.9 mg/dL (0.2-1.0); CHOL/HDL RATIO 3.6; CHOLESTEROL, TOTAL 135 mg/dL (140-239); HDL CHOL % 28 % (26-37); HDL CHOLESTEROL (DIRECT) 38 mg/dL (40-60); LDL CHOLESTEROL,CALCULATED 69 mg/dL (54-169); LDL/HDL RATIO 1.8 (0.5-3.0); TOTAL PROTEIN 7.2 g/dL (6.4-8.2); TRIGLYCERIDES 141 mg/dL (50-200); VLDL CHOLESTEROL 28 mg/dL (0-25)
[2019-11-11] MEDS: HEPARIN 5,000 UNITS/ML, 1ML IV PRN ×2 (04:10→11:34)
[2019-11-11] MEDS: ASPIRIN 81 MG TABLET EC PO SCH (06:18)
[2019-11-11] MEDS: CARVEDILOL 3.125 MG TABLET PO SCH ×2 (06:18→17:35)
[2019-11-11 08:22] VITALS: BP 125/67
[2019-11-11] MEDS ORDERED: PANTOPRAZOLE 40MG TABLET PO SCH (09:00)
[2019-11-11] MEDS: GABAPENTIN 300 MG CAPSULE PO SCH ×3 (09:07→21:32)
[2019-11-11] MEDS: LAMOTRIGINE 25 MG TABLET PO SCH (09:07)
[2019-11-11] MEDS: INSULIN LISPRO 100 UNITS/ML, PEN SQ-INSULIN SCH ×4 (09:07→21:32)
[2019-11-11] MEDS: BICTEGRAV/EMTRICIT/TENOFOV ALA TAB PO SCH (09:08)
[2019-11-11] MEDS: PRASUGREL 10 MG TABLET PO SCH (09:08)
[2019-11-11] MEDS: LISINOPRIL 5 MG TABLET PO SCH (09:08)
[2019-11-11] MEDS: OMEPRAZOLE 20 MG CAPSULE.DR PO SCH (09:08)
[2019-11-11 15:01] VITALS: BP 102/61
[2019-11-11] MEDS: HEPARIN 25,000 UNITS/500ML PMX 500 ML IV PRN (19:27)
[2019-11-11 21:00] VITALS: BP 118/74
[2019-11-11] MEDS: ATORVASTATIN 80 MG TABLET PO SCH (21:32)
[2019-11-11] MEDS: INSULIN GLARGINE 100 UNITS/ML, PEN SQ-INSULIN SCH (21:33)
[2019-11-12 01:40] VITALS: BP 124/75
[2019-11-12 02:28] LABS: BASOPHILS # (AUTO) 0.02 x10^3/uL (0-0.1); BASOPHILS % (AUTO) 0 % (0-1); EOSINOPHILS # (AUTO) 0.15 x10^3/uL (0-0.4); EOSINOPHILS % (AUTO) 3 % (1-7); LYMPHOCYTES # (AUTO) 1.55 x10^3/uL (1-3.4); LYMPHOCYTES % (AUTO) 29 % (22-44); MD NO; MEAN CORPUSCULAR HEMOGLOBIN 29.6 pg (27.5-34.5); MEAN CORPUSCULAR HGB CONC 32.4 g/dL (33.2-36.2); MEAN CORPUSCULAR VOLUME 91.5 fL (81-97); MEAN PLATELET VOLUME 8.3 fL (7.4-10.4); MONOCYTES # (AUTO) 0.54 x10^3/uL (0.2-0.8); MONOCYTES % (AUTO) 10 % (2-9); NEUTROPHILS # (AUTO) 3.06 x10^3/uL (1.8-6.8); NEUTROPHILS % (AUTO) 58 % (42-75); PLATELET COUNT 189 x10^3/uL (130-400); RED BLOOD COUNT 3.19 x10^6/uL (4.38-5.82); RED CELL DISTRIBUTION WIDTH 14.1 % (9.4-14.8)
[2019-11-12 02:42] LABS: ALBUMIN 2.5 g/dL (3.4-5.0); ANION GAP 7 mmol/L (5-15); CALCIUM 8.1 mg/dL (8.5-10.1); CHLORIDE 106 mmol/L (98-107)
[2019-11-12 02:45] LABS: ALANINE AMINOTRANSFERASE 133 U/L (12-78); ALKALINE PHOSPHATASE 185 U/L (45-117); BILIRUBIN,TOTAL 0.8 mg/dL (0.2-1.0); CREATININE 1.37 mg/dL (0.7-1.3); TOTAL PROTEIN 6.5 g/dL (6.4-8.2)
[2019-11-12] MEDS: ASPIRIN 81 MG TABLET EC PO SCH (05:13)
[2019-11-12] MEDS: CARVEDILOL 3.125 MG TABLET PO SCH ×2 (05:14→17:38)
[2019-11-12 06:47] VITALS: BP 96/58
[2019-11-12 08:01] VITALS: BP 131/91
[2019-11-12] MEDS: INSULIN LISPRO 100 UNITS/ML, PEN SQ-INSULIN SCH ×4 (08:04→21:46)
[2019-11-12] MEDS: FUROSEMIDE 20 MG TABLET PO SCH ×2 (08:05→17:38)
[2019-11-12] MEDS: PRASUGREL 10 MG TABLET PO SCH (08:05)
[2019-11-12] MEDS: POTASSIUM CHLORIDE 20 MEQ TAB.ER.PRT PO SCH (08:05)
[2019-11-12] MEDS: GABAPENTIN 300 MG CAPSULE PO SCH ×3 (08:05→21:45)
[2019-11-12] MEDS: LISINOPRIL 5 MG TABLET PO SCH (08:06)
[2019-11-12] MEDS: OMEPRAZOLE 20 MG CAPSULE.DR PO SCH (08:06)
[2019-11-12] MEDS: BICTEGRAV/EMTRICIT/TENOFOV ALA TAB PO SCH (08:06)
[2019-11-12] MEDS: LAMOTRIGINE 25 MG TABLET PO SCH (08:06)
[2019-11-12 13:32] VITALS: BP 138/83
[2019-11-12] MEDS: HEPARIN 25,000 UNITS/500ML PMX 500 ML IV PRN (14:23)
[2019-11-12 17:36] VITALS: BP 139/75
[2019-11-12 20:35] VITALS: BP 155/95
[2019-11-12] MEDS: ATORVASTATIN 80 MG TABLET PO SCH (21:44)
[2019-11-12] MEDS: INSULIN GLARGINE 100 UNITS/ML, PEN SQ-INSULIN SCH (21:46)
[2019-11-13 01:07] VITALS: BP 133/82
[2019-11-13 04:59] LABS: CALCIUM 8.6 mg/dL (8.5-10.1); CHLORIDE 107 mmol/L (98-107)
[2019-11-13 05:03] LABS: ANION GAP 9 mmol/L (5-15); CREATININE 1.38 mg/dL (0.7-1.3)
[2019-11-13] MEDS: HEPARIN 5,000 UNITS/ML, 1ML IV PRN (06:19)
[2019-11-13] MEDS: ASPIRIN 81 MG TABLET EC PO SCH (06:19)
[2019-11-13] MEDS: CARVEDILOL 3.125 MG TABLET PO SCH (06:19)
[2019-11-13 08:07] VITALS: BP 138/85
[2019-11-13] MEDS: BICTEGRAV/EMTRICIT/TENOFOV ALA TAB PO SCH (08:09)
[2019-11-13] MEDS: LISINOPRIL 5 MG TABLET PO SCH (08:10)
[2019-11-13] MEDS: GABAPENTIN 300 MG CAPSULE PO SCH (08:10)
[2019-11-13] MEDS: FUROSEMIDE 20 MG TABLET PO SCH (08:10)
[2019-11-13] MEDS: PRASUGREL 10 MG TABLET PO SCH (08:10)
[2019-11-13] MEDS: LAMOTRIGINE 25 MG TABLET PO SCH (08:10)
[2019-11-13] MEDS: POTASSIUM CHLORIDE 20 MEQ TAB.ER.PRT PO SCH (08:10)
[2019-11-13] MEDS: OMEPRAZOLE 20 MG CAPSULE.DR PO SCH (08:10)
[2019-11-13] MEDS: INSULIN LISPRO 100 UNITS/ML, PEN SQ-INSULIN SCH ×2 (08:11→11:51)
[2019-11-13] MEDS: HEPARIN 25,000 UNITS/500ML PMX 500 ML IV PRN (11:53)
[2019-11-13] MEDS ORDERED: INSU100I28 SQ (13:06)
[2019-11-13] MEDS ORDERED: FURO40TA6 PO (13:06)
[2019-11-13] MEDS ORDERED: RIVA15TA PO (13:06)
[2019-11-13] MEDS ORDERED: RIVA20TA PO (13:06)
[2019-11-13] MEDS ORDERED: POTA20PA25 PO (13:06)
[2019-11-13 13:27] VITALS: BP 139/84
== END 2019-11-13 14:45 | disposition home or self-care (01) | DRG 175 ==
LOC: ED 17:03 → EDIP 19:11 → 5SO 11-11 01:29 → DCLOUNGE 11-13 14:42
PROVIDERS: ADMIT Internal Medicine; ATTEND Internal Medicine
DX: I26.99 Other pulmonary embolism without acute cor pulmonale (principal); I21.19 ST elevation (STEMI) myocardial infarction involving other coronary artery of inferior wall; I50.43 Acute on chronic combined systolic (congestive) and diastolic (congestive) heart failure; J98.11 Atelectasis; I13.0 Hypertensive heart and chronic kidney disease with heart failure and stage 1 through stage 4 chronic kidney disease, or unspecified chronic kidney disease; B20 Human immunodeficiency virus [HIV] disease; N18.3 Chronic kidney disease, stage 3 (moderate); F15.10 Other stimulant abuse, uncomplicated; E11.22 Type 2 diabetes mellitus with diabetic chronic kidney disease; E78.5 Hyperlipidemia, unspecified; F17.210 Nicotine dependence, cigarettes, uncomplicated; Z95.5 Presence of coronary angioplasty implant and graft; I25.10 Atherosclerotic heart disease of native coronary artery without angina pectoris; I25.5 Ischemic cardiomyopathy; J44.9 Chronic obstructive pulmonary disease, unspecified; Z88.0 Allergy status to penicillin; R60.0 Localized edema
CPT/HCPCS: 36415; 71045; 71275; 74175; 80048; 80053; 80061; 82962; 83036; 83735; 83880; 84439; 84443; 84484; 85025; 85520; 93005; 93970; 96374; G0378; J1644; Q9967; J1815; J2270

== ENCOUNTER 2020-12-08 19:18 | Observation (INO) | payer OTHER ==
[~2020-12-08] VITALS: Ht 172.7 cm; Wt 69.0 kg
[~2020-12-08 19:18] MED LIST changes: +ALBU6.7H8 INH; +AMLO-211 PO; -AMLO10TA8 PO; -ASPI-515 PO; +ASPI-963 PO; +FURO40TA6 PO; +GABA600T7 PO; +INSU100I18 SC; -LISI-424 PO; +LISI-606 PO; +METO25TA35 PO; -PANT40TA5 PO; +PANT40TA6 PO; +POTA20PA25 PO; +RIVA15TA PO; +RIVA20TA PO
[2020-12-08 19:58] LABS: BASOPHILS % (AUTO) 1 % (0-1); EOSINOPHILS % (AUTO) 4 % (1-7); LYMPHOCYTES % (AUTO) 26 % (22-44); MEAN CORPUSCULAR HEMOGLOBIN 27.7 pg (27.5-34.5); MEAN CORPUSCULAR HGB CONC 32.9 g/dL (33.2-36.2); MEAN PLATELET VOLUME 8.7 fL (7.4-10.4); MONOCYTES % (AUTO) 12 % (2-9); NEUTROPHILS % (AUTO) 57 % (42-75); PLATELET COUNT 152 x10^3/uL (130-400); RED BLOOD COUNT 4.68 x10^6/uL (4.38-5.82); RED CELL DISTRIBUTION WIDTH 16.5 % (9.4-14.8)
[2020-12-08 19:59] LABS: MD NO
[2020-12-08 20:09] LABS: ALANINE AMINOTRANSFERASE 45 U/L (12-78); ALBUMIN 3.3 g/dL (3.4-5.0); ANION GAP 10 mmol/L (5-15); CALCIUM 7.6 mg/dL (8.5-10.1); CHLORIDE 101 mmol/L (98-107)
[2020-12-08 20:13] LABS: ALKALINE PHOSPHATASE 84 U/L (45-117); BILIRUBIN,TOTAL 0.7 mg/dL (0.2-1.0); CREATININE 3.26 mg/dL (0.7-1.3); TOTAL PROTEIN 7.2 g/dL (6.4-8.2); TROPONIN I 0.038 ng/mL (0.000-0.045)
[2020-12-08] MEDS ORDERED: SODIUM CHLORIDE FLUSH 10ML SYR IVF ONE (20:30)
[2020-12-08] MEDS ORDERED: SODIUM CHLORIDE 0.9% 1,000 ML IV ONE (20:30)
--- NOTE | 2020-12-08 20:52 | NUR ---
PT RESTING IN BED, PT ON MONITOR WITH PT VSS. PT PROVIDED A BLANKET. PT HAS UNLABORED AND EQUAL BREATHS.
[2020-12-08] MEDS ORDERED: NITROGLYCERIN 0.4 MG/SPRAY SL PRN (21:00)
[2020-12-08] MEDS ORDERED: ATORVASTATIN 80 MG TABLET PO SCH (21:00)
[2020-12-08] MEDS ORDERED: DOCUSATE 100 MG CAPSULE PO PRN (21:00)
[2020-12-08] MEDS ORDERED: SODIUM CHLORIDE 0.9% 1,000 ML IV SCH (21:00)
[2020-12-08] MEDS ORDERED: ALBUTEROL HFA 90 MCG/SPRAY INH PRN (21:00)
--- NOTE | 2020-12-08 21:50 | NUR ---
REPORT TO ELYSE TROY FOR 509-2
[2020-12-08 22:08] VITALS: BP 111/73
[2020-12-08 22:10] VITALS: BP 97/65
[2020-12-08 22:12] VITALS: BP 87/55
[2020-12-08] MEDS: GABAPENTIN 300 MG CAPSULE PO SCH (23:04)
[2020-12-09 00:03] LABS: AMPHETAMINE SCREEN, URINE Positive (Negative); BARBITURATE SCREEN, URINE Negative (Negative); BENZODIAZEPINE SCREEN, URINE Negative (Negative); CANNABINOID SCREEN, URINE Negative (Negative); COCAINE SCREEN, URINE Negative (Negative); METHADONE SCREEN, URINE Negative (Negative); OPIATE SCREEN, URINE Negative (Negative)
[2020-12-09 01:40] LABS: TROPONIN I 0.041 ng/mL (0.000-0.045)
[2020-12-09 02:50] VITALS: BP 101/66
[2020-12-09 04:16] LABS: BASOPHILS % (AUTO) 1 % (0-1); EOSINOPHILS % (AUTO) 6 % (1-7); LYMPHOCYTES % (AUTO) 41 % (22-44); MEAN CORPUSCULAR HEMOGLOBIN 27.3 pg (27.5-34.5); MEAN CORPUSCULAR HGB CONC 32.5 g/dL (33.2-36.2); MEAN PLATELET VOLUME 8.2 fL (7.4-10.4); MONOCYTES % (AUTO) 12 % (2-9); NEUTROPHILS % (AUTO) 40 % (42-75); PLATELET COUNT 135 x10^3/uL (130-400); RED BLOOD COUNT 4.41 x10^6/uL (4.38-5.82)
[2020-12-09 04:22] LABS: MD NO
[2020-12-09 04:24] LABS: ANION GAP 9 mmol/L (5-15); CALCIUM 7.4 mg/dL (8.5-10.1); CHLORIDE 109 mmol/L (98-107); CREATININE 2.63 mg/dL (0.7-1.3)
[2020-12-09 04:30] LABS: TROPONIN I 0.037 ng/mL (0.000-0.045)
[2020-12-09 05:45] VITALS: BP 104/67
[2020-12-09] MEDS: CARVEDILOL 3.125 MG TABLET PO SCH ×2 (05:46→18:21)
[2020-12-09] MEDS ORDERED: ASPIRIN 81 MG TABLET EC PO SCH (06:00)
[2020-12-09 07:19] VITALS: BP 103/64
[2020-12-09] MEDS ORDERED: RIVAROXABAN 20 MG TABLET PO SCH (08:00)
[2020-12-09] MEDS ORDERED: PANTOPRAZOLE 40MG TABLET PO SCH (09:00)
[2020-12-09] MEDS ORDERED: LAMOTRIGINE 25 MG TABLET PO SCH (09:00)
[2020-12-09] MEDS ORDERED: LISINOPRIL 5 MG TABLET PO SCH (09:00)
[2020-12-09] MEDS ORDERED: PRASUGREL 10 MG TABLET PO SCH (09:00)
[2020-12-09] MEDS ORDERED: BICTEGRAV/EMTRICIT/TENOFOV ALA TAB PO SCH (09:00)
[2020-12-09] MEDS: GABAPENTIN 300 MG CAPSULE PO SCH ×2 (09:22→16:22)
[2020-12-09] MEDS ORDERED: REGADENOSON 0.4 MG/5 ML SYRINGE ONE (13:21)
[2020-12-09 15:10] VITALS: BP 112/73
== END 2020-12-09 19:07 | disposition home or self-care (01) ==
LOC: ED 21:03 → INTOOBSV 21:11 → EDIP 21:11 → 5SO 22:12
PROVIDERS: ADMIT Family Medicine; ATTEND Internal Medicine
DX: R07.89 Other chest pain (principal); I13.0 Hypertensive heart and chronic kidney disease with heart failure and stage 1 through stage 4 chronic kidney disease, or unspecified chronic kidney disease; E11.22 Type 2 diabetes mellitus with diabetic chronic kidney disease; I50.9 Heart failure, unspecified; N18.2 Chronic kidney disease, stage 2 (mild); I25.118 Atherosclerotic heart disease of native coronary artery with other forms of angina pectoris; J44.9 Chronic obstructive pulmonary disease, unspecified; I25.2 Old myocardial infarction; N17.9 Acute kidney failure, unspecified; E78.5 Hyperlipidemia, unspecified; F17.200 Nicotine dependence, unspecified, uncomplicated; F15.10 Other stimulant abuse, uncomplicated; I42.9 Cardiomyopathy, unspecified; Z86.718 Personal history of other venous thrombosis and embolism; Z88.0 Allergy status to penicillin; Z79.82 Long term (current) use of aspirin; Z79.899 Other long term (current) drug therapy; Z79.4 Long term (current) use of insulin; Z86.711 Personal history of pulmonary embolism; Z21 Asymptomatic human immunodeficiency virus [HIV] infection status; Z95.5 Presence of coronary angioplasty implant and graft; Z86.73 Personal history of transient ischemic attack (TIA), and cerebral infarction without residual deficits; Z91.19 Patient's noncompliance with other medical treatment and regimen; Z79.01 Long term (current) use of anticoagulants
CPT/HCPCS: 36415; 71045; 78452; 80048; 80053; 80307; 84484; 85025; 93005; 93017; 96360; 96361; 99285; A9502; G0378; J2785; J7030

== ENCOUNTER 2021-06-26 18:15 | Inpatient (IN) | payer OTHER ==
[~2021-06-26] VITALS: Ht 172.7 cm; Wt 71.8 kg
--- NOTE | 2021-06-26 19:25 | NUR ---
CMM OPERATOR: PT. TO ROOM FROM WALL WITH NADIA AT THIS TIME.
--- NOTE | 2021-06-26 19:30 | NUR ---
PT BIB [facility] FROM HOME FOR C/O "RIB PAIN" SINCE LAST NIGHT, PRODUCTIVE COUGH, AND N/V. 12-LEAD UNREMARKABLE PER EMS. VS PER EMS: BP 96/52, HR 76, 95% ON RA, BS 323. PT MEDICATED WITH 8MG ZOFRAN AND 2L NS EN ROUTE. BP IMPROVED TO 100/62. PER EMS, PT WEARS O2 AT 2L NC PRN AT HOME AND STATES HIS FSBS IS USUALLY IN THE 200s. HX RENAL INSUFFICIENCY, HI WITH STENTS, CHF. PT ARRIVES TO ED A&OX4, TALKING IN COMPLETE SENTENCES. O2 IN PLACE AT 2L NC. LOOSE COUGH NOTED, NO RESPIRATORY DISTRESS.
--- NOTE | 2021-06-26 19:45 | NUR ---
PT'S SISTER ARRIVED. RV'WD POC WITH PT AND SISTER.
[2021-06-26] MEDS ORDERED: SODIUM CHLORIDE FLUSH 10ML SYR IVF ONE (20:00)
[2021-06-26] MEDS ORDERED: LACTATED RINGERS 500 ML IVBOLUS ONE (20:30)
[2021-06-26 20:41] LABS: BASOPHILS % (AUTO) 1 % (0-1); EOSINOPHILS % (AUTO) 0 % (1-7); LYMPHOCYTES % (AUTO) 12 % (22-44); MEAN CORPUSCULAR HEMOGLOBIN 29.9 pg (27.5-34.5); MEAN CORPUSCULAR HGB CONC 32.5 g/dL (33.2-36.2); MEAN PLATELET VOLUME 8.2 fL (7.4-10.4); MONOCYTES % (AUTO) 6 % (2-9); NEUTROPHILS % (AUTO) 81 % (42-75); PLATELET COUNT 172 x10^3/uL (130-400); RED BLOOD COUNT 5.08 x10^6/uL (4.38-5.82); RED CELL DISTRIBUTION WIDTH 15.8 % (9.4-14.8)
--- NOTE | 2021-06-26 20:45 | NUR ---
ASSISTED PT UP TO BSC. PT HAD MODERATE AMOUNT DIARRHEA. WILL NOTIFY ERP.
[2021-06-26 20:52] LABS: ALANINE AMINOTRANSFERASE 46 U/L (12-78); ALBUMIN 3.1 g/dL (3.4-5.0); ANION GAP 10 mmol/L (5-15); CALCIUM 8.5 mg/dL (8.5-10.1); CHLORIDE 101 mmol/L (98-107); CREATININE 3.87 mg/dL (0.7-1.3)
[2021-06-26 20:56] LABS: ALKALINE PHOSPHATASE 88 U/L (45-117); BILIRUBIN,TOTAL 0.9 mg/dL (0.2-1.0); TOTAL PROTEIN 7.8 g/dL (6.4-8.2); TROPONIN I 0.055 ng/mL (0.000-0.045)
--- NOTE | 2021-06-26 21:06 | NUR ---
REPORTED TO BRIANNA TROY.
--- NOTE | 2021-06-26 21:48 | NUR ---
PT AMBULATED TO RESTROOM AND BACK WITH ASSISTANCE. TOLERATED WELL
[2021-06-26] MEDS ORDERED: LACTATED RINGERS 1,000 ML IVBOLUS ONE (22:30)
--- NOTE | 2021-06-26 23:20 | NUR ---
STOOL SAMPLE WALKED TO LAB
--- NOTE | 2021-06-26 23:42 | NUR ---
ASSISTED PT TO BEDSIDE COMODE AND BACK TOLERATED WELL
[2021-06-27 00:15] LABS: CLOSTRIDIUM DIFFICILE ANTIGEN NEGATIVE; CLOSTRIDIUM DIFFICILE TOXIN NEGATIVE (Negative)
--- NOTE | 2021-06-27 00:50 | NUR ---
PT ATTEMPTED TO OBTAIN URINE SAMPLE. NO SUCCESS AT THIS TIME. WILL TRY AGAIN SOON
[2021-06-27] MEDS ORDERED: LACTATED RINGERS 1,000 ML IV SCH ×2 (02:00→04:00)
--- NOTE | 2021-06-27 02:14 | NUR ---
LAB AT BEDSIDE DRAWING BLOOD
[2021-06-27 03:38] VITALS: BP 97/66
[2021-06-27] MEDS ORDERED: DEXTROSE 4 GM TAB.CHEW PO PRN (04:00)
[2021-06-27] MEDS ORDERED: HYDROmorphone 2 MG/ML, 1ML IVPush PRN (04:00)
[2021-06-27] MEDS ORDERED: BACLOFEN 10 MG TABLET PO PRN (04:00)
[2021-06-27] MEDS ORDERED: DEXTROSE 50%, 50ML SYRINGE IVPush PRN (04:00)
[2021-06-27] MEDS ORDERED: GLUCAGON 1 MG IM PRN (04:00)
[2021-06-27] MEDS ORDERED: NITROGLYCERIN 0.4 MG/SPRAY SL PRN (04:00)
[2021-06-27] MEDS ORDERED: BISACODYL 5 MG EC TABLET PO PRN (04:00)
[2021-06-27] MEDS ORDERED: NITROGLYCERIN 0.4 MG BOTTLE (25 TABS) SL PRN (04:00)
[2021-06-27] MEDS ORDERED: ONDANSETRON 2MG/ML, 2ML IV PRN (04:00)
[2021-06-27] MEDS ORDERED: ACETAMINOPHEN 325 MG TABLET PO PRN (04:00)
[2021-06-27] MEDS ORDERED: morphine SULFATE 10 MG/ML, 1ML IV PRN (04:00)
[2021-06-27 04:25] LABS: TROPONIN I 0.054 ng/mL (0.000-0.045)
[2021-06-27] MEDS: HEPARIN 5,000 UNITS/ML, 1ML SQ SCH ×3 (05:12→22:09)
[2021-06-27 05:21] LABS: MICROSCOPIC AUTO
[2021-06-27] MEDS: INSULIN LISPRO 100 UNITS/ML, PEN SQ-INSULIN SCH ×5 (05:27→22:07)
[2021-06-27 08:58] VITALS: BP 90/54
[2021-06-27] MEDS ORDERED: SODIUM CHLORIDE FLUSH 10ML SYR IVF SCH (09:00)
[2021-06-27] MEDS: SODIUM CHLORIDE FLUSH 10ML SYR IVF SCH ×2 (09:15→22:08)
[2021-06-27] MEDS ORDERED: LOPERAMIDE 2 MG CAPSULE PO PRN (09:30)
[2021-06-27] MEDS ORDERED: LORazepam 0.5MG TABLET PO ONE (10:00)
[2021-06-27 10:13] LABS: ANION GAP 10 mmol/L (5-15); CALCIUM 7.6 mg/dL (8.5-10.1); CHLORIDE 102 mmol/L (98-107)
[2021-06-27 10:16] LABS: CHOL/HDL RATIO 2.9; CHOLESTEROL, TOTAL 135 mg/dL (140-239); CREATININE 3.29 mg/dL (0.7-1.3); HDL CHOL % 34 % (26-37); HDL CHOLESTEROL (DIRECT) 46 mg/dL (40-60); LDL CHOLESTEROL,CALCULATED 59 mg/dL (54-169); LDL/HDL RATIO 1.3 (0.5-3.0); TRIGLYCERIDES 151 mg/dL (50-200); TROPONIN I 0.079 ng/mL (0.000-0.045); VLDL CHOLESTEROL 30 mg/dL (0-25)
[2021-06-27 13:17] VITALS: BP 87/57
[2021-06-27 20:26] VITALS: BP 93/64
[2021-06-27] MEDS: INSULIN GLARGINE 100 UNITS/ML, PEN SQ-INSULIN SCH (22:07)
[2021-06-28 01:12] VITALS: BP 107/70
[2021-06-28] MEDS: HEPARIN 5,000 UNITS/ML, 1ML SQ SCH ×2 (05:57→14:00)
[2021-06-28 06:50] VITALS: BP 104/70
[2021-06-28] MEDS: INSULIN GLARGINE 100 UNITS/ML, PEN SQ-INSULIN SCH ×2 (08:55→20:48)
[2021-06-28] MEDS: SODIUM CHLORIDE FLUSH 10ML SYR IVF SCH ×2 (08:58→20:48)
[2021-06-28] MEDS: INSULIN LISPRO 100 UNITS/ML, PEN SQ-INSULIN SCH ×4 (08:58→20:48)
[2021-06-28 09:22] LABS: BASOPHILS % (AUTO) 0 % (0-1); EOSINOPHILS % (AUTO) 3 % (1-7); LYMPHOCYTES % (AUTO) 33 % (22-44); MEAN CORPUSCULAR HEMOGLOBIN 30.1 pg (27.5-34.5); MEAN PLATELET VOLUME 8.5 fL (7.4-10.4); MONOCYTES % (AUTO) 10 % (2-9); NEUTROPHILS % (AUTO) 55 % (42-75); PLATELET COUNT 137 x10^3/uL (130-400); RED CELL DISTRIBUTION WIDTH 15.5 % (9.4-14.8)
[2021-06-28 09:33] LABS: ALBUMIN 2.8 g/dL (3.4-5.0); ANION GAP 6 mmol/L (5-15); CALCIUM 8.4 mg/dL (8.5-10.1); CHLORIDE 106 mmol/L (98-107)
[2021-06-28 09:36] LABS: ALANINE AMINOTRANSFERASE 66 U/L (12-78); ALKALINE PHOSPHATASE 68 U/L (45-117); BILIRUBIN,TOTAL 0.7 mg/dL (0.2-1.0); CREATININE 1.69 mg/dL (0.7-1.3); TOTAL PROTEIN 6.5 g/dL (6.4-8.2)
[2021-06-28] MEDS: FUROSEMIDE 40 MG/4 ML IV SCH ×2 (12:11→20:48)
[2021-06-28 12:46] VITALS: BP 105/67
[2021-06-28] MEDS: CARVEDILOL 3.125 MG TABLET PO SCH (17:48)
[2021-06-28 20:15] VITALS: BP 134/81
[2021-06-28] MEDS: RIVAROXABAN 20 MG TABLET PO SCH (20:48)
[2021-06-28] MEDS ORDERED: ATORVASTATIN 80 MG TABLET PO SCH (21:00)
[2021-06-29 01:34] VITALS: BP 137/79
[2021-06-29 05:14] VITALS: BP 108/71
[2021-06-29 05:14] LABS: CREATININE 1.45 mg/dL (0.7-1.3)
[2021-06-29] MEDS: CARVEDILOL 3.125 MG TABLET PO SCH (05:18)
[2021-06-29] MEDS ORDERED: ASPIRIN 81 MG TABLET EC PO SCH (06:00)
[2021-06-29 06:33] VITALS: BP 99/63
[2021-06-29] MEDS: INSULIN LISPRO 100 UNITS/ML, PEN SQ-INSULIN SCH ×2 (07:00→11:00)
[2021-06-29] MEDS: SODIUM CHLORIDE FLUSH 10ML SYR IVF SCH (08:16)
[2021-06-29] MEDS: RIVAROXABAN 20 MG TABLET PO SCH (08:16)
[2021-06-29] MEDS: FUROSEMIDE 40 MG/4 ML IV SCH (08:16)
[2021-06-29] MEDS ORDERED: PANTOPRAZOLE 40MG TABLET PO SCH (09:00)
[2021-06-29] MEDS ORDERED: LISINOPRIL 5 MG TABLET PO SCH (09:00)
[2021-06-29] MEDS ORDERED: POTASSIUM CHLORIDE 20 MEQ PACKET PO SCH (09:00)
[2021-06-29] MEDS ORDERED: BICTEGRAV/EMTRICIT/TENOFOV ALA TAB PO SCH (09:00)
[2021-06-29] MEDS: INSULIN GLARGINE 100 UNITS/ML, PEN SQ-INSULIN SCH (10:01)
[2021-06-29 12:07] VITALS: BP 101/67
== END 2021-06-29 13:11 | disposition home or self-care (01) | DRG 640 ==
LOC: ED 20:48 → EDIP 06-27 02:00 → OBSVTOIN 06-27 02:00 → INTOOBSV 06-27 02:00 → 5SO 06-27 03:33
PROVIDERS: ADMIT Internal Medicine; ATTEND Hospitalist
DX: E86.1 Hypovolemia (principal); I21.A1 Myocardial infarction type 2; R57.1 Hypovolemic shock; N17.9 Acute kidney failure, unspecified; I13.0 Hypertensive heart and chronic kidney disease with heart failure and stage 1 through stage 4 chronic kidney disease, or unspecified chronic kidney disease; I50.22 Chronic systolic (congestive) heart failure; E86.0 Dehydration; R07.89 Other chest pain; R19.7 Diarrhea, unspecified; I95.9 Hypotension, unspecified; E11.22 Type 2 diabetes mellitus with diabetic chronic kidney disease; E78.5 Hyperlipidemia, unspecified; E87.5 Hyperkalemia; F15.10 Other stimulant abuse, uncomplicated; I25.10 Atherosclerotic heart disease of native coronary artery without angina pectoris; I48.91 Unspecified atrial fibrillation; J44.9 Chronic obstructive pulmonary disease, unspecified; N18.30 Chronic kidney disease, stage 3 unspecified; Z20.822 Contact with and (suspected) exposure to COVID-19; Z21 Asymptomatic human immunodeficiency virus [HIV] infection status; Z72.0 Tobacco use; Z79.01 Long term (current) use of anticoagulants; Z86.711 Personal history of pulmonary embolism; I25.2 Old myocardial infarction; Z86.718 Personal history of other venous thrombosis and embolism; Z95.5 Presence of coronary angioplasty implant and graft; Z88.0 Allergy status to penicillin
CPT/HCPCS: 36415; 71045; 71250; 74176; 76770; 80048; 80053; 80061; 81001; 82565; 82962; 83036; 83605; 83690; 83880; 84145; 84484; 85025; 87040; 87324; 93005; 96360; 99292; G0378; J1644; J1940; J7120; U0005; J1815; U0003